=== PATIENT | female | born 1995 | race Caucasian/White ===

== ENCOUNTER 2017-07-05 16:43 | Emergency (ER) | payer MEDICAID ==
[2017-07-05 16:49] VITALS: PULSE 112; RESP 18; TEMP 98.4; O2SAT 95
--- NOTE | 2017-07-05 17:06 | EDPHY ---
H & P Stated Complaint: Sent by [facility] for med clear for detox;last drinks~ 2hrs ago Time Seen by Provider: 07/05/17 16:52 HPI/ROS: CHIEF COMPLAINT: Referred from [facility] for Librium HISTORY OF PRESENT ILLNESS: The patient is a chronic alcoholic referred to the emergency department from the [facility] for Librium medication. The patient reports that she has a chronic daily drinker and is interested in sobriety. She has no history of alcohol withdrawal seizure. She has no history of hospitalization for alcohol withdrawal syndrome. The patient denies any additional acute medical complaints such as fever, chest pain, melena or hematemesis. The patient takes no regular medications. She has no significant past medical history aside from her alcohol dependence. REVIEW OF SYSTEMS: A comprehensive 10 point review of systems is otherwise negative aside from elements mentioned in the history of present illness. Source: Patient - Personal History LMP (Females 10-55): 15-21 Days Ago Current Tetanus Diphtheria and Acellular Pertussis (TDAP): Yes - Medical/Surgical History Hx Alcoholism: Yes - Social History Smoking Status: Current every day smoker - Physical Exam Exam: General Appearance: Alert, no distress Eyes: Pupils equal and round no pallor or injection ENT, Mouth: Mucous membranes moist Respiratory: There are no retractions, lungs are clear to auscultation Cardiovascular: Regular rate and rhythm Gastrointestinal: Abdomen is soft and nontender, no masses, bowel sounds normal Neurological: A&O, normal motor function, normal sensory exam, normal cranial nerves Skin: Warm and dry, no rashes Musculoskeletal: Neck is supple nontender Extremities: symmetrical, full range of motion Constitutional: Initial Vital Signs Temperature (C) 36.9 C 07/05/17 16:46 Heart Rate 112 H 07/05/17 16:46 Respiratory Rate 18 07/05/17 16:46 Blood Pressure 122/78 H 07/05/17 16:46 O2 Sat (%) 95 07/05/17 16:46 O2 Delivery Mode Room Air Allergies/Adverse Reactions: No Known Allergies Allergy (Unverified 07/05/17 16:45) Home Medications: Medication Instructions Recorded NK [No Known Home Meds] 07/05/17 Medical Decision Making ED Course/Re-evaluation: The patient is well-appearing without evidence of moderate her severe withdrawal. Her vital signs are stable. Her physical examination is unremarkable. The patient will be provided a Librium prepack and discharged back to the [facility] for further assistance with her alcohol dependence and medical detox. The patient is instructed to return to the emergency department for any worsening symptoms, chest pain, intractable vomiting or other concerns. Departure - Departure Disposition: Home, Routine, Self-Care Clinical Impression: Alcoholic intoxication, Alcohol dependence Condition: Good Instructions: Alcohol Dependence (ED) Additional Instructions: Please follow up with the [facility] for further assistance with your alcohol dependence. Return to the emergency department for intractable vomiting, severe pain, fever or other concerns. Referrals: JOSÉ,UNKNOWN [Other] - As per Instructions [facility] 24 Hours [Outside] - As per Instructions
[2017-07-05] MEDS ORDERED: CHLORDIAZEPOXIDE 25MG PREPK#6 BTL TAKEHOME ONE (17:17)
[2017-07-05 17:30] VITALS: BP 114/87
== END 2017-07-05 17:35 | disposition home or self-care (01) ==
DX: F10.229 Alcohol dependence with intoxication, unspecified (principal); F17.200 Nicotine dependence, unspecified, uncomplicated